=== PATIENT | male | born 1990 | race African-American/Black ===

== ENCOUNTER 2018-07-05 06:53 | Emergency (ER) | payer SELFPAY ==
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
[2018-07-05 07:12] VITALS: BP 145/75
== END 2018-07-05 07:20 | disposition home or self-care (01) ==
LOC: ED 06:53
DX: S05.8X2A Other injuries of left eye and orbit, initial encounter (principal); V49.40XA Driver injured in collision with unspecified motor vehicles in traffic accident, initial encounter; Y92.481 Parking lot as the place of occurrence of the external cause
CPT/HCPCS: 99282